=== PATIENT | female | born 1960 | race Caucasian/White ===

== ENCOUNTER 2017-08-11 19:08 | Emergency (ER) | payer OTHER ==
[2017-08-11 19:39] LABS: HEMATOCRIT 52.4 % (36.0-47.0); HEMOGLOBIN 17.3 g/dL (12.0-15.5); MEAN CORPUSCULAR HEMOGLOBIN 32 pg (25-35); MEAN CORPUSCULAR HGB CONC 33 g/dL (31-37); MEAN CORPUSCULAR VOLUME 96 fL (79-100); PLATELET COUNT 206 x10^3/uL (140-400); RED BLOOD COUNT 5.49 x10^6/uL (3.50-5.40); WHITE BLOOD COUNT 15.1 x10^3/uL (4.0-11.0)
[2017-08-11 19:46] LABS: ANION GAP 11 (6-14); BLOOD UREA NITROGEN 7 mg/dL (7-20); CALCIUM 9.4 mg/dL (8.5-10.1); CARBON DIOXIDE 25 mmol/L (21-32); CHLORIDE 101 mmol/L (98-107); CREATININE 0.6 mg/dL (0.6-1.0); GFR 102.7; GLUCOSE 152 mg/dL (70-99); POTASSIUM 4.1 mmol/L (3.5-5.1); SODIUM 137 mmol/L (136-145)
[2017-08-11 19:47] LABS: INR 1.2 (0.8-1.1); PARTIAL THROMBOPLASTIN TIME 27 SEC (24-38); PROTHROMBIN TIME PATIENT 14.3 SEC (11.7-14.0)
[2017-08-11 19:51] LABS: CREATINE KINASE 50 U/L (26-192)
[2017-08-11] MEDS ORDERED: CONTRAST GIVEN MC (20:00)
[2017-08-11] MEDS ORDERED: IOHEXOL 300 MG/ML 100ML VIAL. IV (20:00)
[2017-08-11 20:56] LABS: POC GLUCOSE 142 mg/dL (70-99)
== END 2017-08-11 20:44 | disposition short-term general hospital (02) ==
LOC: ER 19:08
DX: R29.818 Other symptoms and signs involving the nervous system (principal); R47.81 Slurred speech; E11.9 Type 2 diabetes mellitus without complications; E78.00 Pure hypercholesterolemia, unspecified; Z88.2 Allergy status to sulfonamides; Z87.891 Personal history of nicotine dependence; Z86.73 Personal history of transient ischemic attack (TIA), and cerebral infarction without residual deficits; W18.39XA Other fall on same level, initial encounter; Y93.89 Activity, other specified; Y92.89 Other specified places as the place of occurrence of the external cause; Y99.8 Other external cause status
CPT/HCPCS: 36415; 70450; 70496; 70498; 80048; 82550; 82962; 85027; 85610; 85730; 93005; 99291-25